=== PATIENT | male | born 1985 | race Caucasian/White ===

== ENCOUNTER 2016-08-01 20:23 | Emergency (ER) | payer OTHER ==
[~2016-08-01] VITALS: Ht 177.8 cm; Wt 73.5 kg
[2016-08-01 20:36] VITALS: TEMP 36.9; Ht 177.8 cm; Wt 73.5 kg
[2016-08-01] MEDS ORDERED: OXYC-57 PO (21:06)
[2016-08-01 21:13] LABS: URINE APPEARANCE CLEAR (CLEAR); URINE BILIRUBIN NEG (NEG); URINE COLOR YELLOW; URINE EPITHELIAL CELL AUTO 0-5 /lpf (0-5); URINE NITRITE NEG (NEG); URINE SPECIFIC GRAVITY 1.004 (1.000-1.030); UROBILINOGEN NEG (NEG); ZZUR CULT IF INDIC CLEAN CATCH NO
[2016-08-01 21:14] LABS: MANUAL MICROSCOPIC REQUIRED? NO; REVIEW REQ? NO
[2016-08-01 21:27] VITALS: BP 124/76; PULSE 98; O2SAT 98
--- NOTE | 2016-08-02 00:29 | EMERGENCY ROOM VISIT NOTE ---
History Report prepared by Antoinette: Jh De Los Santos Under the Supervision of: Dr. Bhaskar Amin D.O. First contact with patient: 21:15 Chief Complaint: OTHER COMPLAINT Stated Complaint: PAIN, NAUSEA, OOZING FROM SURGICAL SITE History of Present Illness The patient is a 31 year old male who presents to the Emergency Room with complaints of a possible infection to a surgical cite. The surgery was a vasectomy procedure that was completed 5 days ago. The patient has noticed redness and yellow discharge from the surgical site. He also has been experiencing pain and discomfort in the area as well. He just finished up his course of Keflex. He denies any fevers. Source of History: patient Onset: 5 days ago Position: other (Scrotum) Symptom Intensity: mild Quality: other (Possible infection) Timing: constant Associated Symptoms: No fevers Note: He is experiencing redness and yellow discharge at the surgical site. Review of Systems See HPI for pertinent positives & negatives. A total of 10 systems reviewed and were otherwise negative. Past Medical & Surgical Medical Problems: (1) Migraine Surgical Problems: (1) H/O hernia repair Family History Cancer Diabetes mellitus Heart disease Hypertension Social History Smoking Status: Never Smoker Alcohol Use: occasionally Drug Use: none Occupation Status: employed Current/Historical Medications Scheduled PRN Oxycodone/Acetaminophen 5MG/325MG (Percocet 5MG/325MG), 1 TABLET PO Q4H PRN for Pain Allergies Coded Allergies: Erythromycin (Unverified Allergy, Unknown, ,, 08/01/16) Physical Exam Vital Signs Date Time Temp Pulse Resp B/P (MAP) Pulse Ox O2 Delivery O2 Flow Rate FiO2 08/01/16 21:27 98 16 124/76 98 Room Air 08/01/16 20:36 36.9 106 18 133/89 100 Room Air Physical Exam CONSTITUTIONAL/VITAL SIGNS: Reviewed / noted above. GENERAL: Non-toxic in appearance. INTEGUMENTARY: Warm, dry, and [place]. HEAD: Normocephalic. EYES: without scleral icterus or trauma. ENT/OROPHARYNX: clear and moist. LYMPHADENOPATHY/NECK: Is supple without lymphadenopathy or meningismus. RESPIRATORY: Lungs clear and equal. CARDIOVASCULAR: Regular rate and rhythm. GI/ABDOMEN: Soft and nontender. No organomegaly or pulsatile mass. No rebound or guarding. Normal bowel sounds. EXTREMITIES: Warm and well perfused. : No obvious discharge or redness in the area of the surgical site. BACK: No CVA tenderness. NEUROLOGICAL: Intact without focal deficits. PSYCHIATRIC: normal affect. MUSCULOSKELETAL: Normally developed with good muscle tone. Medical Decision & Procedures Laboratory Results Test 08/01/16 20:57 Urine Color YELLOW Urine Appearance CLEAR (CLEAR) Urine pH 6.0 (4.5-7.5) Urine Specific [place] 1.004 (1.000-1.030) Urine Protein NEG (NEG) Urine Glucose (UA) NEG (NEG) Urine Ketones NEG (NEG) Urine Occult Blood NEG (NEG) Urine Nitrite NEG (NEG) Urine Bilirubin NEG (NEG) Urine Urobilinogen NEG (NEG) Urine Leukocyte Esterase NEG (NEG) Urine WBC (Auto) 0 /hpf (0-5) Urine RBC (Auto) 0-4 /hpf (0-4) Urine Hyaline Casts (Auto) 0 /lpf (0-5) Urine Epithelial Cells (Auto) 0-5 /lpf (0-5) Urine Bacteria (Auto) NEG (NEG) Laboratory results as stated above per my review. ED Course 2114: Previous medical records were reviewed. The patient was evaluated in room C12. A complete history and physical examination was performed. 2129: On reevaluation, the patient is resting. I discussed the results and findings with the patient. He verbalized agreement of the treatment plan. He was discharged home. Medical Decision Differential diagnosis: Etiologies such as cellulitis, abscess, MRSA infection, DVT, necrotizing fasciitis, dermatitis, drug eruption, as well as others were entertained.. Medication Reconciliation: I attest that I have personally reviewed the patient' s current medication list. Blood pressure Screening: Patient was found to have normal blood pressure on screening and does not require follow-up. The patient presents with concerns of possible infection related to his vasectomy. He states that his there was a little discharge from one of the wounds. He just finished Keflex yesterday. His exam was unremarkable. He has no discharge or redness around the incisions. There is no swelling of the scrotum. He is felt to be stable for discharge without any additional treatment at this time. Impression Primary Impression: Scrotal pain Scribe Attestation The scribe's documentation has been prepared under my direction and personally reviewed by me in its entirety. I confirm that the note above accurately reflects all work, treatment, procedures, and medical decision making performed by me. Departure Information Dispostion Home / Self-Care Referrals No Doctor, Assigned (PCP) Forms HOME CARE DOCUMENTATION FORM, IMPORTANT VISIT INFORMATION, WORK / SCHOOL INSTRUCTIONS Patient Instructions My [facility]
== END 2016-08-01 21:27 | disposition home or self-care (01) ==
LOC: C.EDB 20:25 → C.EDC 21:27
DX: N50.82 Scrotal pain (principal); Z98.52 Vasectomy status; Z83.3 Family history of diabetes mellitus; Z82.49 Family history of ischemic heart disease and other diseases of the circulatory system